=== PATIENT | male | born 1960 | race Caucasian/White ===

== ENCOUNTER 2021-09-04 11:48 | Emergency (ER) | payer MEDICAID, SELFPAY ==
[2021-09-04 11:50] VITALS: BP 161/90; PULSE 58; RESP 18; TEMP 36.8; O2SAT 97; BMI 33.7
--- NOTE | 2021-09-04 12:58 | EKG12_ITS ---
Test Reason : SOB Blood Pressure : / mmHG Vent. Rate : 056 BPM Atrial Rate : 056 BPM P-R Int : 146 ms QRS Dur : 096 ms QT Int : 440 ms P-R-T Axes : -09 022 012 degrees QTc Int : 424 ms Sinus bradycardia Otherwise normal ECG Confirmed by AVELINA PAEZ, JAME ([id number]), film editor supervisor SYLVIA CANADA ([id number]) on 09/05/2021 10:40:17 AM Referred By: ESE Confirmed By:JAME QUAN MD
--- NOTE | 2021-09-04 13:16 | RAD_ITS ---
STUDY: X-RAY CHEST REASON FOR EXAM: Male, 61 years old. Shortness of breath TECHNIQUE: Single frontal view of the chest. COMPARISON: None. FINDINGS: There is a vague opacity within the right midlung. There are left basilar streaky opacities. Normal size heart. Normal mediastinum and gagan. Normal visualized pulmonary arteries. Normal visualized aortic arch and descending thoracic aorta. Normal visualized thoracic spine. Normal visualized ribs, clavicles, and shoulders. There is no demonstrated abnormality of the visualized soft tissue structures of the upper abdomen. RAD/Chest 1 View (Portable) IMPRESSION: The vague opacity within the right midlung, may be secondary to a confluence of shadows however cannot exclude asymmetric edema and/or an infectious process. Minimal left basilar atelectasis and/or scarring. Electronically Signed: Lo Nam MD at 14:02 EST Tel , Service support ,
[2021-09-04] MEDS: Meclizine 12.5 MG Tablet PO (14:05)
[2021-09-04 14:06] VITALS: BP 136/83; PULSE 57; RESP 16; O2SAT 96
[2021-09-04 14:10] LABS: Absolute Lymphocyte Count 1.23 X10^3/uL (0.83-4.51); Absolute Neutrophil Count 11.1 X10^3/uL (2.0-7.7); Basophil# 0.04 X10^3/uL; Basophil% 0.3 % (0-1); Eosinophil# 0.03 X10^3/uL; Eosinophils% 0.2 % (0-5); Hematocrit 44.7 % (40-54); Hemoglobin 14.9 g/dL (13.0-16.5); Lymphocyte # 1.23 X10^3/ul (0.83-4.51); Lymphocyte % 9.3 % (19-41); Mean Corp Hgb Conc 33.3 g/dL (32-36); Mean Corpuscular Volume 93.1 fL (80-94); Mean Platelet Vol. 10.4 fl (6.2-12.0); Monocyte# 0.75 X10^3/uL; Monocyte% 5.7 % (0-10); NRBC Flagged by Analyzer 0 % (0-5); Neutrophil # 11.08 X10^3/uL (2.7-7.7); Neutrophil % 83.9 % (47-70); Platelet Count 310 K/mm3 (150-450); RBC Distribution Width CV 12.1 % (11.6-14.6); RBC Distribution Width SD 42.4 fl (35.1-43.9); White Blood Count 13.2 K/mm3 (4.4-11.0)
[2021-09-04 14:23] LABS: D-Dimer Quantitative (DVT/PE) <= 0.27 FEU/ug/m (0.27-0.49)
[2021-09-04 14:27] LABS: Lactic Acid 1.3 mmol/L (0.4-1.9)
[2021-09-04 14:29] LABS: AST(SGOT) 13 U/L (15-37); Alanine Aminotransfer ALT/SGPT 30 U/L (16-61); Albumin, Serum 3.7 g/dL (3.2-5.0); Alkaline Phosphatase 53 U/L (45-117); Anion Gap 4 (5-15); BUN 13 mg/dL (7-18); BUN/Creat Ratio 14.7 RATIO (10-20); Calcium,Total 9.2 mg/dL (8.5-10.1); Chloride 104 mmol/L (98-107); Creatinine, Serum 0.88 mg/dL (0.70-1.30); EST Glomerular Filtration Rate 94 mL/min (>60); Est Glom Filt Rate - Afr Amer 113 mL/min (>60); Estimated Creatinine Clearance 92.17 ml/min; Globulin 3.7 g/dL (2.2-4.2); Glucose 106 mg/dL (74-106); Potassium 4.9 mmol/L (3.5-5.1); Protein, Total 7.4 g/dL (6.4-8.2); Sodium Level 139 mmol/L (136-145); Troponin-I HS 6 pg/mL (3.0-78.0)
--- NOTE | 2021-09-04 15:56 | EDS_ITS ---
HPI History of Present Illness Chief Complaint: Shortness of Breath Informant: patient Onset/Context/Timing Onset: Yesterday Current Severity: Moderate Maximum Severity: Moderate Narrative Narrative: Patient presents secondary to dizziness and increased shortness of breath. Patient states he was diagnosed with Covid 10 days ago. He had very mild illness similar to a head cold. Patient states last evening he started to feel worse and today feels dizzy. He describes it as a spinning sensation but more of a tumbling forward as opposed to everything spinning around him. He has had some mild increase shortness of breath. No significant fever. Patient is unvaccinated. He did not receive monoclonal antibody treatment or steroids. [facility] Medical History Hypertension Home Medications amlodipine 10 mg PO DAILY 09/04/21 [History Last Taken Unknown] dexamethasone [Decadron] 6 mg PO DAILY #9 tab 09/04/21 [Rx Last Taken Unknown] levofloxacin 750 mg PO DAILY #4 tab 09/04/21 [Rx Last Taken Unknown] meclizine 25 mg PO TID PRN #14 tab 09/04/21 [Rx Last Taken Unknown] Allergy/AdvReac Type Severity Reaction Status Date / Time Sulfa (Sulfonamide AdvReac Other Verified 09/04/21 11:49 Antibiotics) Surgical History History of hernia repair Hx of vasectomy Social History Smoking Status: Never smoker ROS ROS ED Constitutional Constitutional ED: Denies chills or fever(s) Eyes Eyes: Denies blurry vision or change in vision ENT ENT ED: Denies sore throat Cardiovascular Cardiovascular: Denies chest pain or palpitations Respiratory/Chest Respiratory/Chest: Reports cough and dyspnea Gastrointestinal Gastrointestinal: Denies abdominal pain, diarrhea or vomiting Genitourinary Genitourinary ED: Denies dysuria Musculoskeletal Musculoskeletal: Reports myalgias Integumentary Denies rash Neurologic Neurologic: Denies headache(s) Psychiatric Psychiatric: Denies anxiety or depression Allergic/Immunologic Allergic/Immunologic ED: Denies urticaria EXAM Physical Exam Const Vital Signs: 09/04/21 11:50 09/04/21 14:06 09/04/21 16:32 Temperature 98.2 F Temperature Source Temporal Pulse Rate 58 L 57 L 64 Respiratory Rate 18 16 17 Blood Pressure 161/90 H 136/83 H Blood Pressure Mean 113 100 Pulse Ox 97 96 97 Oxygen Delivery Method Room Air Room Air Positive well nourished and well developed General Appearance ED: well developed HEENT Reports moist mucous membranes Eyes PERRL and EOMs intact bilaterally Neck supple Chest Wall inspection of chest normal and palpation of chest normal Resp normal respiratory effort and clear to auscultation bilaterally Cardio regular rate and regular rhythm GI normal to inspection, nondistended, normoactive bowel sounds and non-tender Palpation: soft Neuro oriented x3, CN's II-XII intact bilaterally and no sensory deficits noted Sensorium / Orientation: alert Motor Exam: strength 5/5 throughout Psych mental status grossly normal Skin no rashes or lesions noted MDM MDM MDM Narrative Medical decision making narrative: Lab work, chest x-ray obtained. EKG ordered. Patient given a dose of Antivert. Lab Data Attestation: I reviewed the patient's lab results. Labs: Laboratory Results - last 24 hr 09/04/21 09/04/21 09/04/21 13:54 13:54 13:54 WBC 13.2 H RBC 4.80 Hgb 14.9 Hct 44.7 MCV 93.1 MCH 31.0 MCHC 33.3 RDW Std Deviation 42.4 RDW Coeff of Neetu 12.1 Plt Count 310 MPV 10.4 Immature Gran % (Auto) 0.600 Neut % (Auto) 83.9 H Lymph % (Auto) 9.3 L [place] % (Auto) 5.7 Eos % (Auto) 0.2 Baso % (Auto) 0.3 Absolute Neuts (auto) 11.1 H Absolute Lymphs (auto) 1.23 Nucleated RBC % 0 D-Dimer Quant (PE/DVT) <= 0.27 Sodium 139 Potassium 4.9 Chloride 104 Carbon Dioxide 31.0 Anion Gap 4 L BUN 13 Creatinine 0.88 Estim Creat Clear Calc 92.17 Est GFR (MDRD) Af Amer 113 Est GFR (MDRD) Non-Af 94 BUN/Creatinine Ratio 14.7 Glucose 106 Lactic Acid Calcium 9.2 Total Bilirubin 0.70 Direct Bilirubin 0.20 AST 13 L ALT 30 Alkaline Phosphatase 53 Troponin I High Sens 6 Total Protein 7.4 Albumin 3.7 Globulin 3.7 09/04/21 13:54 WBC RBC Hgb Hct MCV MCH MCHC RDW Std Deviation RDW Coeff of [place]etu Plt Count MPV Immature Gran % (Auto) Neut % (Auto) Lymph % (Auto) [place] % (Auto) Eos % (Auto) Baso % (Auto) Absolute Neuts (auto) Absolute Lymphs (auto) Nucleated RBC % D-Dimer Quant (PE/DVT) Sodium Potassium Chloride Carbon Dioxide Anion Gap BUN Creatinine Estim Creat Clear Calc Est GFR (MDRD) Af Amer Est GFR (MDRD) Non-Af BUN/Creatinine Ratio Glucose Lactic Acid 1.3 Calcium Total Bilirubin Direct Bilirubin AST ALT Alkaline Phosphatase Troponin I High Sens Total Protein Albumin Globulin Radiography Chest X-Ray - ED: 1 View, Read by ED Physician and Chronic Changes Diagnostic Testing: Clinical Impression(s) from Imaging Studies Chest X-Ray 09/04/21 13:16 IMPRESSION: The vague opacity within the right midlung, may be secondary to a confluence of shadows however cannot exclude asymmetric edema and/or an infectious process. Minimal left basilar atelectasis and/or scarring. Electronically Signed: Lo Nam MD at 14:02 EST Tel , Service support , EKG Initial EKG: Attestation: I personally reviewed and interpreted this EKG as follows: Interpretation: Sinus Bradycardia (Sinus bradycardia 56 bpm. No acute ischemia.) Treatment and Re-Evaluation Comments:: On repeat evaluation patient reports mild improvement in symptoms. He is not hypoxic. Lab work remarkable for elevated white count at 13.2. Left shift noted. D-dimer negative. Troponin normal at 6. Chest x-ray appears to show chronic changes per my interpretation. Radiologist is concerned there may be an opacity in the right midlung representing an infectious process. With patient having worsening symptoms and an elevated white count we will cover him with antibiotics for possible secondary bacterial pneumonia. We will also give him Decadron as well as some Antivert. Discharge Plan Triage Chief Complaint: Shortness of Breath Other Complaint: Nausea/Vomiting ED Provider: Alma Dela Cruz Dx/Rx/DC Orders Clinical Impression: COVID, Pneumonia, Vertigo Instructions: Coronavirus Disease 2019 (COVID-19): Overview, ED Pneumonia (Adult), ED Vertigo, Unspecified Prescriptions: New meclizine 25 mg tablet 25 mg PO TID PRN (Reason: dizziness) Qty: 14 RF: 0 levofloxacin 750 mg tablet 750 mg PO DAILY Qty: 4 RF: 0 dexamethasone [Decadron] 6 mg tablet 6 mg PO DAILY Qty: 9 RF: 0 No Action amlodipine 10 mg tablet 10 mg PO DAILY RF: 0 Stand Alone Forms: ED Work / School Excuse Primary Care Provider: Coretta Magana Referrals: Coretta Magana MD [Primary Care Provider] - 1 Week if not improving Disposition Disposition: Home, Self Care Discharge Date/Time: 09/04/21 16:33
[2021-09-04] MEDS: dexAMETHasone 4 MG Tablet 6 MG PO (16:16)
[2021-09-04] MEDS: levoFLOXacin 750 MG Tablet PO (16:16)
[2021-09-04 16:32] VITALS: PULSE 64; RESP 17; O2SAT 97
== END 2021-09-04 16:33 | disposition home or self-care (01) ==
PROVIDERS: Emergency Provider Emergency Medicine; PCP Family Medicine
DX: U07.1 COVID-19 (principal); J12.82 Pneumonia due to coronavirus disease 2019; R11.2 Nausea with vomiting, unspecified; Z28.3 Underimmunization status; I10 Essential (primary) hypertension; Z79.899 Other long term (current) drug therapy
CPT/HCPCS: 71045; 80048; 80076; 83605; 84484; 85025; 85379; 87040; 93005; 99285; A4216

== ENCOUNTER → 2025-09-25 | Outpatient (CLI) | payer OTHER, SELFPAY ==
--- OUTSIDE RECORDS SUMMARY | 2025-09-25 10:17 | XMS RPT_ITS | CCD ---
Author Organization [facility] Care Team Providers Care Boat Officer Name Role Phone WOODY MARQUEZ Unavailable Unavailable WOODY MARQUEZ Unavailable Unavailable Woody Marquez Primary Care Provider [phone] Tapan Mei DO Primary Care Provid er TAPAN MEI Attending TAPAN Brar Primary Care TAPAN Brar Attending TAPAN Brar Primary Care Juany laws Allergies Allergy Classification Reported Allergen(s) Allergy Type Date of Onset Reaction(s) Facility (14 sources) Sulfonamides (Antibiotic); Translations: [SULFA (SULFONAMIDE ANTIBIOTICS)] Drug Allergy Other: See Comments [facility] Medications Current Medications Medication Drug Class(es) Dates Sig (Normalized) Sig (Original) losartan potassium 50 mg oral tablet (20 sources) Angiotensin 2 Receptor Norah Start: 02-20-2024 End: 04-09-2025 take 1 tablet by mouth once daily losartan (COZAAR) 50 mg tablet Indications: Hypertension, essential TAKE ONE TABLET BY MOUTH once EVERY DAY 90 tablet 1 04/09/2025 Active Start: 01-28-2024 End: 03-18-2025 take 1 tablet by mouth once daily losartan (COZAAR) 25 mg tablet Indications: Hypertension, essential Take 1 tablet by mouth once daily. 30 tablet 5 01/28/2024 03/18/2025 Discontinued (Course of therapy completed) magnesium oxide 500 mg oral tablet (13 sources) Magnesium Oxide 500 mg magnesium tab Take by mouth. Active MEDICATION, NON-DATABASE (13 sources) MEDICATION, NON- DATABASE Supplements ever strong Blood pressure w dina Olipure BP Pur zanthin Powdered beets Active MEDICATION, NON- DATABASE Supplements ever strong Blood pressure w dina Olipure BP Pur zanthin Active MEDICATION, NON- DATABASE Supplements ever strong Blood pressure w dina Olipure BP Pur zanthin 0 Active zolpidem tartrate 10 mg oral tablet (17 sources) gamma-Aminobutyric Acid-ergic Agonist Start: 03-10-2025 End: 09-06-2025 take 1 tablet by mouth at bedtime as needed zolpidem (AMBIEN) 10 mg Indications: Primary insomnia Take 1 tablet by mouth at bedtime as needed for up to 180 days. 90 tablet 1 03/10/2025 09/06/2025 Active Start: 09-05-2024 End: 03-04-2025 take 1 tablet by mouth at bedtime as needed zolpidem (AMBIEN) 10 mg Indications: Primary insomnia Take 1 tablet by mouth at bedtime as needed for up to 180 days. for insomnia. 90 tablet 1 09/05/2024 03/04/2025 Active Start: 02-28-2024 End: 03-18-2025 take 1 tablet by mouth at bedtime as needed zolpidem (AMBIEN) 5 mg tablet Indications: Primary insomnia Take 1 tablet by mouth at bedtime as needed for up to 180 days. for insomnia. 90 tablet 1 02/28/2024 03/18/2025 Discontinued (Course of therapy completed) Start: 01-28-2024 End: 04-27-2024 take 1 tablet by mouth at bedtime as needed zolpidem (AMBIEN) 5 mg tablet Indications: Primary insomnia Take 1 tablet by mouth at bedtime as needed for up to 90 days. for insomnia. 30 tablet 1 01/28/2024 02/28/2024 Discontinued Completed/Discontinued Medications Medication Drug Class(es) Dates Sig (Normalized) Sig (Original) amLODIPine 5 mg oral tablet (20 sources) Dihydropyridine Calcium Channel Norah Start: 01-28-2024 End: 03-18-2025 take 1 tablet by mouth once daily amLODIPine (NORVASC) 5 mg tablet Indications: Hypertension, essential TAKE ONE TABLET BY MOUTH DAILY 30 tablet 3 11/24/2024 03/18/2025 Discontinued (Course of therapy completed) Start: 12-18-2018 End: 03-18-2025 take 1 tablet by mouth once daily amLODIPine (NORVASC) 10 mg tablet Take 1 tablet by mouth once daily. 90 tablet 1 12/18/2018 03/18/2025 Discontinued (Course of therapy completed) Comment on above: Take 1 tablet by dann th once daily. rOPINIRole 1 mg oral tablet (12 sources) Nonergot Dopamine Agonist Start: 01-28-2024 End: 03-18-2025 take 1 tablet by mouth once daily at bedtime rOPINIRole (REQUIP) 1 mg tablet Take 1 tablet by mouth daily at bedtime. 30 tablet 2 01/28/2024 03/18/2025 Discontinued (Course of therapy completed) Problems Problem Classification Problem Date Documented Da te Episodic/Chronic Disorders of lipid metabolism (10 sources) Hypertriglyceridemi a; Translations: [Pure hyperglyceridemia] Onset: 09-14-2024 02-20-2024 Chronic Essential hypertension (20 sources) Essential hypertension; Translations: [Essential (primary) hypertension] Onset: 02-03-2024 01-28-2024 Chronic Immunizations and screening for infectious disease (1 source) Contact with or exposure to other viral diseases; Translations: [Exposure to COVID-19 virus] Episodic Miscellaneous mental health disorders (17 sources) Primary insomnia; Translations: [Primary insomnia] Onset: 02-03-2024 01-28-2024 Chronic Other connective tissue disease (1 source) Cramp; Translations: [Cramp and spasm] 01-28-2024 Episodic Other hereditary and degenerative nervous system conditions (14 sources) Restless legs; Translations: [Restless legs syndrome] Onset: 02-03-2024 01-28-2024 Chronic Other nutritional; endocrine; and metabolic disorders (15 sources) Obesity; Translations: [Obesity, unspecified] Onset: 02-03-2024 01-28-2024 Chronic Other nutritional; endocrine; and metabolic disorders (1 source) Body mass index (BMI) 34.0-34.9, adult; Translations: [Class 1 obesity with body mass index (BMI) of 34.0 to 34.9 in adult, unspecified obesity type, unspecified whether serious comorbidity present] Onset: 09-05-2024 Chronic Other screening for suspected conditions (not mental disorders or infectious disease) (8 sources) Patient encounter status; Translations: [Encounter for screening for lipoid disorders] Onset: 03-18-2025 01-28-2024 Episodic Residual codes; unclassified (1 source) Daytime somnolence; Translations: [Other hypersomnia] 01-28-2024 Chronic Residual codes; unclassified (2 sources) Bilateral lower limb edema; Translations: [Localized edema] 01-28-2024 Episodic Spondylosis; intervertebral disc disorders; other back problems (4 sources) Disorder of right sciatic nerve; Translations: [Sciatica, right side] Onset: 03-18-2025 03-18-2025 Episodic Unclassified (1 source) Class 1 obesity with body mass index (BMI) of 34.0 to 34.9 in adult, unspecified obesity type, unspecified whether serious comorbidity present; Translations: [Class 1 obesity with body mass index (BMI) of 34.0 to 34.9 in adult, unspecified obesity type, unspecified whether serious comorbidity present] Onset: 09-05-2024 Results Test Name Value Interpretation Reference Range Facil kerry Mcconnell 03-18-2025 CNOV Office Visit (FPDOYL ) DEWEYFDAI ([id number]) 1960 M Date Time Provider Department 03/18/25 8:00 AM TAPAN MEI FPYL During your visit today, we recorded the following information about you: Temperature Pulse Blood pressure Weight 98 degrees 65/minute 120/88 108 kg Height 1.778 m Tapan Mei DO 03/25/2025 10:49 PM Signed Subjective Romeo Palomo is a 64-year-old male with a history of insomnia, presenting for evaluation of right foot numbness. Right Foot Numbness: - Numbness in the right foot, described as feeling like a big ball of cotton under the toes. - Symptoms begin in the big toe and progress to all toes. - Symptoms occur when sitting in a car, but not when riding a motorcycle. - Duration: 6 months or longer. - No known trauma to the right ankle; previous injury to the left ankle. - Occasional pain in the right thigh. - Denies foot drop. Back Pain: - History of a muscular injury to the lower back during his career. - Believes the back injury may be contributing to the foot numbness. Insomnia: - Currently taking Ambien for sleep. - Inquires about less habit-forming alternatives to Ambien. - Reports that Ambien works most of the time. Restless Leg Syndrome: - No episodes of restless leg syndrome in over a year. - Previously tried Requip without relief. Colorectal Cancer Screening: - Completed Cologuard test 2 years ago. - Takes Metamucil daily. Review of Systems Cardiovascular: (-) chest pain, (-) chest tightness Gastrointestinal: (-) bowel problems Genitourinary: (-) urinary problems Musculoskeletal: (+) right thigh pain Neurological: (+) right toe numbness, (-) restless legs, (-) right foot drop PAST MEDICAL HISTORY Diagnosis Date Hypertension PAST SURGICAL HISTORY Procedure Laterality Date PAST SURGICAL HISTORY OF hernia - left ingunial FAMILY HISTORY Problem Relation Age of Onset Hypertension Mother DVT Mother Ovarian cancer Mother Lung Cancer Mother other (non hodkins) Sister Hypertension Brother other (mva) Brother Social History Tobacco Use Smoking status: Never Smokeless tobacco: Never Substance Use Topics Alcohol use: Yes Comment: just on weekend Drug use: No Current Outpatient Medications Medication Sig zolpidem (AMBIEN) 10 mg Take 1 tablet by mouth at bedtime as needed for up to 180 days. losartan (COZAAR) 50 mg tablet TAKE ONE TABLET BY MOUTH once DAILY Magnesium Oxide 500 mg magnesium tab Take by mouth. MEDICATION, NON-DATABASE Supplements ever strong Blood pressure w dina Olipure BP Pur zanthin Powdered beets No current facility-administered medications for this visit. Objective BP 120/88 Pulse 65 Temp 36.7 ?C (98 ?F) Ht 5' 10 (1.778 m) Wt 238 lb (108 kg) SpO2 98% BMI 34.15 kg/m? Physical Exam GENERAL: NAD, alert and oriented. SKIN: Unremarkable, no rash or skin lesions. HEAD: Normocephalic. EYES: PERRLA, EOMI, conjunctiva clear. EARS: External ears normal, canals clear, TM's normal. NOSE/SINUSES: Nares normal. Septum midline. OROPHARYNX: Lips, mucosa, and tongue normal, good dentition. No oral lesions noted. NECK: Supple, no lymphadenopathy, normal thyroid, no carotid bruits. LUNGS: Clear to auscultation bilaterally, no wheezes/rhonchi/rales. HEART: Regular rate and rhythm, no murmurs. No ectopy. EXTREMITIES: Normal, no deformities, no skin discoloration, no edema. Good foot strength bilaterally. NEURO: Awake, alert and oriented x3, cranial nerves II-XII grossly intact, normal gait, no involuntary motions. No foot drop on the right. Labs: Tests: - Cologuard: Performed 2 years ago (no results stated) Imaging: Assessment AND Plan 1. Hypertension, essential (I10) - Blood pressure reading today is 120/86 mmHg. - Missed medication dose yesterday. - Continue current antihypertensive regimen. 2. Hypertriglyceridemia (E78.1) - Taking fish oil 1000 mg daily. - Continue current management. 3. Screening for prostate cancer (Z12.5) - Discussed the importance of regular screening. 4. Screening for thyroid disorder (Z13.29) - Discussed the importance of regular screening. 5. Sciatica, right side (M54.31) - Experiencing numbness in the toes of the right foot, starting at the big toe and spreading to all toes, described as feeling like a big ball of cotton. Symptoms occur when sitting in a car but not when riding a motorcycle. - Symptoms have been present for approximately 6 months or longer. - No history of foot drop; good foot strength bilaterally. - No bowel or urinary problems reported. - Suspected herniated disc in the lower back. - Discussed potential for irreversible damage if foot drop occurs. - Recommended further evaluation and management. Tapan Mei, DO Return in about 6 months (around 09/17/2025). Rec (more content not included)... Normal [facility] CNOVon 09-05-2024 CNOV Office Visit (FPDOYL ) FADI PALOMO ([id number]) 1960 M Date Time Provider Department 09/05/24 1:00 PM TAPAN MEI EDY During your visit today, we recorded the following information about you: Pulse Blood pressure Weight Height 80/minute 112/70 108 kg 1.778 m Tapan Mei DO 09/14/2024 8:08 PM Signed [facility] [place] Tapan MeiDO [address] [place] [address] Date of Evaluation: 09/05/2024 Patient Name: Fadi Palomo : 1960 Chief Complaint: Patient presents with: Sleep Problem: Would like to increase Medication Problem: Norvasc needs clarified Nursing Intake: There are no exam notes on file for this visit. Subjective Mr. Palomo is a 64 year old male who presents with the following complaint(s): The history is provided by the patient. Hypertension This is a chronic problem. The current episode started more than 1 year ago. Pertinent negatives include no chest pain, headaches, palpitations or shortness of breath. Review of Systems Constitutional: Negative for fatigue and unexpected weight change. HENT: Positive for congestion. Negative for nosebleeds. Eyes: Negative for redness and visual disturbance. Respiratory: Negative for apnea, cough and shortness of breath. Cardiovascular: Negative for chest pain, palpitations and leg swelling. Genitourinary: Negative for hematuria. Neurological: Negative for dizziness, weakness, light-headedness, numbness and headaches. Hematological: Does not bruise/bleed easily. Psychiatric/Behavioral: Positive for sleep disturbance. The patient is not nervous/anxious. PAST MEDICAL HISTORY Diagnosis Date Hypertension PAST SURGICAL HISTORY Procedure Laterality Date PAST SURGICAL HISTORY OF hernia - left ingunial FAMILY HISTORY Problem Relation Age of Onset Hypertension Mother DVT Mother Ovarian cancer Mother Lung Cancer Mother other (non hodkins) Sister Hypertension Brother other (mva) Brother Social History Tobacco Use Smoking status: Never Smokeless tobacco: Never Substance Use Topics Alcohol use: Yes Comment: just on weekend Drug use: No Current Outpatient Medications Medication Sig amLODIPine (NORVASC) 5 mg tablet TAKE ONE TABLET BY MOUTH DAILY zolpidem (AMBIEN) 5 mg tablet Take 1 tablet by mouth at bedtime as needed for up to 180 days. for insomnia. losartan (COZAAR) 50 mg tablet Take 1 tablet by mouth once daily. Magnesium Oxide 500 mg magnesium tab Take by mouth. MEDICATION, NON-DATABASE Supplements ever strong Blood pressure w dina Olipure BP Pur timothy amLODIPine (NORVASC) 10 mg tablet Take 1 tablet by mouth once daily. zolpidem (AMBIEN) 10 mg Take 1 tablet by mouth at bedtime as needed for up to 180 days. for insomnia. losartan (COZAAR) 25 mg tablet Take 1 tablet by mouth once daily. rOPINIRole (REQUIP) 1 mg tablet Take 1 tablet by mouth daily at bedtime. No current facility-administered medications for this visit. I have confirmed and edited as necessary the past medical, family and social histories, HPI, and ROS obtained by others. Objective BP 112/70 Pulse 80 Ht 5' 10 (1.78m) Wt 238 lb (108.0kg) SpO2 97% BMI 34.15 kg/(m2). Physical Exam Vitals and nursing note reviewed. Constitutional: General: He is not in acute distress. Appearance: Normal appearance. He is well-developed. He is not ill-appearing. HENT: Head: Normocephalic. Nose: Congestion present. Mouth/Throat: Mouth: Mucous membranes are moist. Pharynx: Oropharynx is clear. Uvula midline. No oropharyngeal exudate or posterior oropharyngeal erythema. Eyes: General: Lids are normal. Vision grossly intact. Gaze aligned appropriately. Extraocular Movements: Extraocular movements intact. Conjunctiva/sclera: Conjunctivae normal. Pupils: Pupils are equal, round, and reactive to light. Neck: Thyroid: No thyroid mass, thyromegaly or thyroid tenderness. Vascular: No carotid bruit. Trachea: Trachea and phonation normal. Cardiovascular: Rate and Rhythm: Normal rate and regular rhythm. Pulses: Normal pulses. Heart sounds: Normal heart sounds. Musculoskeletal: General: Normal range of motion. Right shoulder: Normal. Left shoulder: Normal. Cervical back: Normal, full passive range of motion without pain and neck supple. No tenderness. No spinous process tenderness. Thoracic back: Normal. Lumbar back: Normal. Right knee: Normal. Left knee: Normal. Right lower leg: No edema. Left lower leg: No edema. Lymphadenopathy: Cervical: No cervical adenopathy. Skin: General: Skin is warm and dry. Neurological: General: No focal deficit present. Mental Status: He is alert and oriented to person, place, and time. Mental status is at basel (more content not included)... Normal [facility] Vital Signs Date Time Vital Sign Value Performing Clinician Whitney salazar 03-18-2025 08:30-0400 Diastolic blood pressure 88 mm[Hg] Tapan Sigifredo DO Work Phone: [facility] 03-18-2025 08:30-0400 Systolic blood pressure 120 mm[Hg] Charlotte Sigifredo DO Work Phone: [facility] 03-18-2025 07:53-0400 Body height 177.8 cm Charlotte Sigifredo DO Work Phone: [facility] 03-18-2025 07:53-0400 Body mass index (BMI) [Ratio] 34.15 kg/m2 Charlotte Sigifredo DO Work Phone: [facility] 03-18-2025 07:53-0400 Body temperature 98.01 [degF] Tapan Sigifredo DO Work Phone: [facility] 03-18-2025 07:53-0400 Body weight 107.96 kg Charlotte Sigifredo DO Work Phone: [facility] 03-18-2025 07:53-0400 Heart rate 65 /min Charlotte Sigifredo DO Work Phone: [facility] 03-18-2025 07:53-0400 SaO2% (BldA) [Mass fraction] 98 % Charlotte Sigifredo DO Work Phone: [facility] 02-20-2024 10:49-0400 Diastolic blood pressure 88 mm[Hg] Charlotte Sigifredo DO Work Phone: [facility] 02-20-2024 10:49-0400 Systolic blood pressure 130 mm[Hg] Tapan Sigifredo DO Work Phone: [facility] 02-20-2024 10:10-0400 Body height 177.8 cm Charlotte Sigifredo DO Work Phone: [facility] 02-20-2024 10:10-0400 Body mass index (BMI) [Ratio] 34.58 kg/m2 Charlotte Sigifredo DO Work Phone: [facility] 02-20-2024 10:10-0400 Body weight 109.32 kg Tapan Sigifredo DO Work Phone: [facility] 02-20-2024 10:10-0400 Heart rate 75 /min Charlotte Sigifredo DO Work Phone: [facility] 02-20-2024 10:10-0400 SaO2% (BldA) [Mass fraction] 96 % Charlotte Sigifredo DO Work Phone: [facility] 01-28-2024 09:11-0400 Diastolic blood pressure 100 mm[Hg] Tapan Sigifredo DO Work Phone: [facility] 01-28-2024 09:11-0400 Systolic blood pressure 132 mm[Hg] Charlotte Sigifredo DO Work Phone: [facility] 01-28-2024 08:36-0400 Body height 177.8 cm Charlotte Sigifredo DO Work Phone: [facility] 01-28-2024 08:36-0400 Body mass index (BMI) [Ratio] 35.15 kg/m2 Tapan Sigifredo DO Work Phone: [facility] 01-28-2024 08:36-0400 Body weight 111.13 kg Tapan Sigifredo DO Work Phone: [facility] 01-28-2024 08:36-0400 Heart rate 80 /min Tapan Sigifredo DO Work Phone: [facility] 01-28-2024 08:36-0400 SaO2% (BldA) [Mass fraction] 96 % Tapan Sigifredo DO Work Phone: [facility] Encounters Encounter Date Encounter Type Care Provider Facility Start: 04-07-2025 End: 04-09-2025 Refill Charlotte Keaton Sigifredo DO Work Phone: [facility] [place] Comment on above: Refill Request Start: 03-18-2025 End: 03-18-2025 Patient encounter procedure Tapan Keaton Sigifredo DO Work Phone: [facility] [place] Comment on above: Hypertension, essent ial (Primary Dx); Hypertriglyceridemia; Sciatica, right side; Screening for prostate cancer; Screening for thyroid disorder Start: 03-18-2025 End: 03-18-2025 ambulatory TAPAN KEATON SIGIFREDO Facility:[facility] Start: 03-08-2025 End: 03-10-2025 Refill Tapan Keaton Sigifredo DO Work Phone: [facility] [place] Comment on above: Refill Request Start: 03-02-2025 End: 03-02-2025 Refill Charlotte Keaton Sigifredo DO Work Phone: [facility] Comment on above: Refill Request Start: 11-22-2024 End: 11-24-2024 Refill Tapan Keaton Sigifredo DO Work Phone: [facility] Comment on above: Refill Request Start: 10-23-2024 End: 10-23-2024 Refill Tapan Keaton Sigifredo DO Work Phone: [facility] Comment on above: Refill Request Start: 09-23-2024 End: 09-26-2024 Refill Tapan Keaton Sigifredo DO Work Phone: [facility] Comment on above: Refill Request Start: 09-05-2024 End: 09-05-2024 ambulatory TAPAN KEATON SIGIFREDO Facility:[facility] Start: 08-22-2024 End: 08-26-2024 Refill Charlotte Keaton Sigifredo DO Work Phone: [facility] Comment on above: Refill Request Start: 07-24-2024 End: 07-25-2024 Refill Tapan Mei DO Work Phone: [facility] Comment on above: Refill Request Start: 02-28-2024 Telephone encounter Tapan Mei DO Work Phone: [facility] Comment on above: Medication Problem Start: 02-20-2024 End: 02-20-2024 Patient encounter procedure Tapan Mei DO Work Phone: [facility] Comment on above: Hypertension, essent ial (Primary Dx); Hypertriglyceridemia; Bilateral leg edema; Class 1 obesity with body mass index (BMI) of 34.0 to 34.9 in adult, unspecified obesity type, unspecified whether serious comorbidity present Start: 02-18-2024 Telephone encounter Tapan Mei DO Work Phone: [facility] Comment on above: Results Start: 01-28-2024 End: 01-28-2024 Patient encounter procedure Tapan Mei DO Work Phone: [facility] Comment on above: Hypertension, essent ial (Primary Dx); Primary insomnia; Muscle cramping; Bilateral leg edema; Excessive daytime sleepiness; RLS (restless legs syndrome); Class 2 obesity with body mass index (BMI) of 35.0 to 35.9 in adult, unspecified obesity type, unspecified whether serious comorbidity present; Screening for hyperlipidemia; Screening for thyroid disorder; Screening for prostate cancer; Screening for colon cancer Start: 10-07-2020 End: 10-07-2020 Orders Only Dorothea Kaplan Work Phone: [facility] Comment on above: Exposure to COVID-19 virus (Primary Dx) Start: 05-03-2018 Patient encounter WOODY flower:[facility] Procedures Date Procedure Procedure Detail Performing Clinician Start: 02-12-2024 Lipid 1996 panel - S hair or Plasma Charlotte Sigifredo DO Work Phone: Start: 10-20-2016 Lipid 1996 panel - S hair or Plasma Tapan Sigifredo DO Work Phone: Plan of Treatment Date Care Activity Detail Author Start: 2036 RSV Vaccine (1 - 1-dose 75+ series) RSV Vaccine (1 - 1-dose 75+ series) [facility] Start: 02-11-2029 Lipid panel Lipid Screening [facility] Start: 02-11-2029 Prostate specific antigen measurement Prostate Cancer Screening Discussion [facility] Start: 02-11-2027 Diabetes Screening Diabetes Screening [facility] Start: 01-30-2027 Screening for malignant neoplasm of colon [facility] Start: 03-18-2026 Annual PCP Team Chronic Disease Visit Annual PCP Team Chronic Disease Visit [facility] Start: 09-05-2025 Annual PCP Team Chronic Disease Visit Annual PCP Team Chronic Disease Visit [facility] Start: 09-05-2025 BP Controlled (<130/80) BP Controlled (<130/80) [facility] Start: 06-01-2025 Influenza vaccination [facility] Start: 03-18-2025 End: 03-18-2026 CBC W Auto Differential panel - Blood COMPLETE BLOOD COUNT AND DIFFERENTIAL Lab Routine Hypertension, essential Hypertriglyceridemia Expected: 03/18/2025, Expires: 03/18/2026 [facility] Work Phone: Comment on above: Expected: 03/18/2025, Expires: Start: 03-18-2025 End: 03-18-2026 Comprehensive metabolic 2000 panel - Serum or Plasma COMPREHENSIVE METABOLIC PANEL Lab Routine Hypertension, essential Hypertriglyceridemia Expected: 03/18/2025, Expires: 03/18/2026 [facility] Comment on above: Expected: 03/18/2025, Expires: Start: 03-18-2025 End: 03-18-2026 Lipid 1996 panel - Serum or Plasma LIPID PANEL, FASTING Lab Routine Hypertension, essential Hypertriglyceridemia Expected: 03/18/2025, Expires: 03/18/2026 [facility] Comment on above: Expected: 03/18/2025, Expires: Start: 03-18-2025 End: 03-18-2026 PSA/PROSTATE SPECIFIC ANTIGEN SCREENING PSA/PROSTATE SPECIFIC ANTIGEN SCREENING Lab Routine Screening for prostate cancer Expected: 03/18/2025, Expires: 03/18/2026 [facility] Comment on above: Expected: 03/18/2025, Expires: Start: 03-18-2025 End: 03-18-2026 Thyrotropin [Units/volume] in Serum or Plasma THYROID STIMULATING HORMONE Lab Routine Screening for thyroid disorder Expected: 03/18/2025, Expires: 03/18/2026 [facility] Comment on above: Expected: 03/18/2025, Expires: Start: 03-18-2025 End: 06-17-2025 Urinalysis complete panel - Urine URINALYSIS, WITH MICROSCOPIC Lab Routine Hypertension, essential Hypertriglyceridemia Expected: 03/18/2025, Expires: 06/17/2025 [facility] Comment on above: Expected: 03/18/2025, Expires: Start: 03-18-2025 End: 03-18-2025 Patient encounter procedure 03/18/2025 8:00 [place] [address] Tapan Mei DO [address] [place] [address] Refill ck up [facility] Comment on above: Refill ck up Start: 02-19-2025 Annual PCP Team Chronic Disease Visit Annual PCP Team Chronic Disease Visit [facility] Start: 01-27-2025 Annual PCP Team Chronic Disease Visit Annual PCP Team Chronic Disease Visit [facility] Start: 01-27-2025 Covid-19 Vaccine ( season) Covid-19 Vaccine () [facility] Comment on above: Postponed from 06/01/2023 (Declined at t his time) Start: 01-27-2025 RSV Vaccine (1 - 1-dose 60+ series) RSV Vaccine (1 - 1-dose 60+ series) [facility] Comment on above: Postponed from 2021 (Declined at t his time) Start: 01-27-2025 Shingrix Vaccine (1 of 2) Shingrix Vaccine (1 of 2) [facility] Comment on above: Postponed from 2011 (Declined at t his time) Start: 01-27-2025 Urine microalbumin profile DTaP,Tdap,Td Vaccine (2 - Td or Tdap) [facility] Comment on above: Postponed from 10/01/2022 (Declined at t his time) Start: 09-05-2024 End: 09-05-2024 Patient encounter procedure 09/05/2024 1:00 PM EST Office Visit [facility] [address] [place] [id number] Tapan Mei DO [address] [place] [id number] ambien increase [facility] Comment on above: ambien increase Start: 08-18-2024 End: 08-18-2024 Patient encounter procedure 08/18/2024 10:15 AM EST Office Visit [facility] [address] [place] [id number] Taapn Mei DO [address] [place] [id number] 6 mos ck up [facility] Comment on above: 6 mos ck up Start: 06-01-2024 Covid-19 Vaccine ( season) Covid-19 Vaccine ( season) [facility] Start: 06-01-2024 Influenza vaccination [facility] Start: 02-20-2024 End: 02-20-2024 Patient encounter procedure 02/20/2024 10:15 AM EDT Office Visit [place] [id number] [facility] [place] [address] Tapan Mei DO [address] [place] [address] f/u [address] [facility] Comment on above: f/u 3 weeks Start: 01-28-2024 End: 01-27-2025 CBC W Auto Differential panel - Blood COMPLETE BLOOD COUNT AND DIFFERENTIAL Lab Routine Screening for hyperlipidemia Expected: 01/28/2024, Expires: 01/27/2025 [facility] Work Phone: Comment on above: Expected: 01/28/2024, Expires: Start: 01-28-2024 End: 01-27-2025 Comprehensive metabolic 2000 panel - Serum or Plasma COMPREHENSIVE METABOLIC PANEL Lab Routine Screening for hyperlipidemia Expected: 01/28/2024, Expires: 01/27/2025 [facility] Comment on above: Expected: 01/28/2024, Expires: Start: 01-28-2024 End: 01-27-2025 Lipid 1996 panel - Serum or Plasma LIPID PANEL BASIC Lab Routine Screening for hyperlipidemia Expected: 01/28/2024, Expires: 01/27/2025 [facility] Comment on above: Expected: 01/28/2024, Expires: Start: 01-28-2024 End: 01-27-2025 PSA/PROSTATE SPECIFIC ANTIGEN SCREENING PSA/PROSTATE SPECIFIC ANTIGEN SCREENING Lab Routine Screening for prostate cancer Expected: 01/28/2024, Expires: 01/27/2025 [facility] Comment on above: Expected: 01/28/2024, Expires: Start: 01-28-2024 End: 01-27-2025 Thyrotropin [Units/volume] in Serum or Plasma THYROID STIMULATING HORMONE Lab Routine Screening for thyroid disorder Expected: 01/28/2024, Expires: 01/27/2025 [facility] Comment on above: Expected: 01/28/2024, Expires: Start: 11-08-2023 Screening for malignant neoplasm of colon [facility] Start: 10-01-2023 Behavioral Health Screening Behavioral Health Screening [facility] Start: 10-01-2022 Urine microalbumin profile [facility] Start: 10-20-2021 Lipid panel Lipid Screening [facility] Start: 10-20-2021 LIPID SCREEN LIPID SCREEN [facility] Start: 10-20-2021 PROSTATE CANCER SCREENING DISCUSSION PROSTATE CANCER SCREENING DISCUSSION [facility] Start: 10-20-2021 Prostate specific antigen measurement Prostate Cancer Screening Discussion [facility] Start: 10-07-2020 End: 10-21-2020 2019 CORONAVIRUS 2019 CORONAVIRUS Microbiolog y Routine Exposure to COVID-19 virus Expected: 10/07/2020, Expires: 10/21/2020 [facility] Comment on above: Expected: 10/07/2020, Expires: Start: 06-01-2020 Influenza vaccination INFLUENZA (#1) [facility] Start: 11-11-2019 ANNUAL PCP TEAM CHRONIC DISEASE VISIT ANNUAL PCP TEAM CHRONIC DISEASE VISIT [facility] Start: 10-20-2019 DIABETES SCREEN DIABETES SCREEN [facility] Start: 10-20-2019 Diabetes Screening Diabetes Screening [facility] Start: 2011 Pneumococcal Vaccine: 50+ (1 of 1 - PCV) Pneumococcal Vaccine: 50+ (1 of 1 - PCV) [facility] Start: 2011 Screening for malignant neoplasm of colon [facility] Start: 2011 SHINGRIX VACCINE (1 of 2) SHINGRIX VACCINE (1 of 2) [facility] Start: 2006 Screening for malignant neoplasm of colon [facility] Start: 1979 Anxiety Screening Anxiety Screening [facility] Start: 1979 BP CONTROLLED (<130/80) BP CONTROLLED (<130/80) [facility] Start: 1979 Depression Screening Depression Screening [facility] Start: 1979 HEPATITIS C SCREENING HEPATITIS C SCREENING [facility] Start: 1979 Hepatitis C screening Hepatitis C Screening [facility] Start: 1979 HIV SCREENING HIV SCREENING [facility] Start: 1979 HIV screening HIV Screening [facility] COLOGUARD COLOGUARD Lab Ro utine Screening for colon cancer 02/01/2024 9:53 AM EDT [facility] SLEEP STUDY ORDER NO N [facility] SLEEP STUDY ORDER NON [facility] Procedures Routine Excessive daytime sleepiness Ordered: 01/28/2024 [facility] Comment on above: Ordered: 01/28/2024 Immunizations Immunization Date Immunization Notes Care Provider Quique flower 10-23-2019 influenza, injectabl e, quadrivalent, preservative free Tapan Sigifredo DO Work Phone: [facility] 10-23-2019 influenza virus vacc ine, unspecified formulation Tapan Sigifredo DO Work Phone: [facility] 08-02-2015 influenza, seasonal, injectable, preservative free Charlotte Sigifredo DO Work Phone: [facility] 07-27-2015 influenza, seasonal, injectable Dorothea Kaplan [facility] 07-27-2015 influenza, seasonal, injectable, preservative free Tapan Sigifredo DO Work Phone: [facility] 07-31-2013 influenza, seasonal, injectable, preservative free Tapan Sigifredo DO Work Phone: [facility] Payers Date Payer Category Payer Private Health Insurance [id number] 2023 Unknown MMO [employer] PPO [id number] 2023-Present [phone] [address] [place] [address] PPO [id number] 2023 Unknown [id number] 2017 Private Health Insurance [facility] CHOICE PLUS [id number] 2017-Present HMO [id number] Social History Date Type Detail Facility Start: 11-11-2018 End: 01-28-2024 Tobacco smoking status NHIS Never smoker [facility] Start: 11-11-2018 End: 01-28-2024 Tobacco use and exposure [facility] Start: 11-11-2018 End: 01-28-2024 Alcohol intake Current drinker of alcohol (finding) [facility] Start: 05-03-2018 Alcohol Comment 10/wk Clevel[facility] Start: 1960 Sex Assigned At Not on file [facility] Start: 01-28-2024 End: 03-18-2025 History of Social function [facility] Start: 01-28-2024 End: 03-18-2025 Tobacco use panel [facility] Adult Depression Screening Assessment 0 [facility] Start: 01-28-2024 Alcohol Comment just on [facility] Start: 1960 Sex Assigned At Male [facility] Start: 01-21-2024 Gender identity Identifies as male gender (finding) [facility] Start: 01-21-2024 Sexual orientation Heterosexual (fin ding) [facility] Clinical Notes 01-28-2024 to 04-07-2025 Telephone Encounter - Greer Qiu LPN - 04/07/2025 11:51 AM EDTTelephone Encounter - Greer Qiu LPN - 04/07/2025 11:51 AM Tapan Miranda DO - 03/18/2025 8:33 AM EDT Note Date & Type Note Facility 04-07-2025 Telephone encounter Note Pharmacy faxed requesting the following refill Refill(s) Requested: Requested Prescriptions Pending Prescriptions Disp Refills losartan (COZAAR) 50 mg tablet [Pharmacy Med Name: Losartan Potassium Oral Tablet 50 MG] 90 tablet 1 Sig: TAKE ONE TABLET BY MOUTH once EVERY DAY ALLERGIES Allergen Reactions Sulfa (Sulfonamide * Other: See Comments headache (home) [phone] (cell) Last Office Visit Date: 03/18/2025 Last [facility] Visit: Visit date not found Future Appointment: Visit date not found The patients preferred pharmacy has been captured for this encounter? yes Request is for script(s) to be escript to pharmacy. Greer Qiu LPN [facility] 04-07-2025 Miscellaneous Notes Pharmacy faxed requesting the following refill Refill(s) Requested: Requested Prescriptions Pending Prescriptions Disp Refills losartan (COZAAR) 50 mg tablet [Pharmacy Med Name: Losartan Potassium Oral Tablet 50 MG] 90 tablet 1 Sig: TAKE ONE TABLET BY MOUTH once EVERY DAY ALLERGIES Allergen Reactions Sulfa (Sulfonamide * Other: See Comments headache (home) [phone] (cell) Last Office Visit Date: 03/18/2025 Last [facility] Health Visit: Visit date not found Future Appointment: Visit date not found The patients preferred pharmacy has been captured for this encounter? yes Request is for script(s) to be escript to pharmacy. Greer Qiu LPN documented in this encounter [facility] 03-18-2025 Note HNO ID: [id number] Author: TAPAN MEI, DO Service: ? Author Type: Physician Type: Progress Notes Filed: 03/25/2025 22:49 Note Text: Alton Palomo is a 64-year-old male with a history of insomnia, presenting for evaluation of right foot numbness. Right Foot Numbness: - Numbness in the right foot, described as feeling like a big ball of cotton under the toes. - Symptoms begin in the big toe and progress to all toes. - Symptoms occur when sitting in a car, but not when riding a motorcycle. - Duration: 6 months or longer. - No known trauma to the right ankle; previous injury to the left ankle. - Occasional pain in the right thigh. - Denies foot drop. Back Pain: - History of a muscular injury to the lower back during his career. - Believes the back injury may be contributing to the foot numbness. Insomnia: - Currently taking Ambien for sleep. - Inquires about less habit-forming alternatives to Ambien. - Reports that Ambien works most of the time. Restless Leg Syndrome: - No episodes of restless leg syndrome in over a year. - Previously tried Requip without relief. Colorectal Cancer Screening: - Completed Cologuard test 2 years ago. - Takes Metamucil daily. Review of Systems Cardiovascular: (-) chest pain, (-) chest tightness Gastrointestinal: (-) bowel problems Genitourinary: (-) urinary problems Musculoskeletal: (+) right thigh pain Neurological: (+) right toe numbness, (-) restless legs, (-) right foot drop PAST MEDICAL HISTORY Diagnosis Date Hypertension PAST SURGICAL HISTORY Procedure Laterality Date PAST SURGICAL HISTORY OF hernia - left ingunial FAMILY HISTORY Problem Relation Age of Onset Hypertension Mother DVT Mother Ovarian cancer Mother Lung Cancer Mother other (non hodkins) Sister Hypertension Brother other (mva) Brother Social History Tobacco Use Smoking status: Never Smokeless tobacco: Never Substance Use Topics Alcohol use: Yes Comment: just on weekend Drug use: No Current Outpatient Medications Medication Sig zolpidem (AMBIEN) 10 mg Take 1 tablet by mouth at bedtime as needed for up to 180 days. losartan (COZAAR) 50 mg tablet TAKE ONE TABLET BY MOUTH once DAILY Magnesium Oxide 500 mg magnesium tab Take by mouth. MEDICATION, NON-DATABASE Supplements ever strong Blood pressure w dina Olipure BP Pur zanthin Powdered beets No current facility-administered medications for this visit. Objective BP 120/88 Pulse 65 Temp 36.7 ?C (98 ?F) Ht 5' 10 (1.778 m) Wt 238 lb (108 kg) SpO2 98% BMI 34.15 kg/m? Physical Exam GENERAL: NAD, alert and oriented. SKIN: Unremarkable, no rash or skin lesions. HEAD: Normocephalic. EYES: PERRLA, EOMI, conjunctiva clear. EARS: External ears normal, canals clear, TM's normal. NOSE/SINUSES: Nares normal. Septum midline. OROPHARYNX: Lips, mucosa, and tongue normal, good dentition. No oral lesions noted. NECK: Supple, no lymphadenopathy, normal thyroid, no carotid bruits. LUNGS: Clear to auscultation bilaterally, no wheezes/rhonchi/rales. HEART: Regular rate and rhythm, no murmurs. No ectopy. EXTREMITIES: Normal, no deformities, no skin discoloration, no edema. Good foot strength bilaterally. NEURO: Awake, alert and oriented x3, cranial nerves II-XII grossly intact, normal gait, no involuntary motions. No foot drop on the right. Labs: Tests: - Cologuard: Performed 2 years ago (no results stated) Imaging: Assessment AND Plan 1. Hypertension, essential (I10) - Blood pressure reading today is 120/86 mmHg. - Missed medication dose yesterday. - Continue current antihypertensive regimen. 2. Hypertriglyceridemia (E78.1) - Taking fish oil 1000 mg daily. - Continue current management. 3. Screening for prostate cancer (Z12.5) - Discussed the importance of regular screening. 4. Screening for thyroid disorder (Z13.29) - Discussed the importance of regular screening. 5. Sciatica, right side (M54.31) - Experiencing numbness in the toes of the right foot, starting at the big toe and spreading to all toes, described as feeling like a big ball of cotton. Symptoms occur when sitting in a car but not when riding a motorcycle. - Symptoms have been present for approximately 6 months or longer. - No history of foot drop; good foot strength bilaterally. - No bowel or urinary problems reported. - Suspected herniated disc in the lower back. - Discussed potential for irreversible damage if foot drop occurs. - Recommended further evaluation and management. Tapan Mei DO Return in about 6 months (around 09/17/2025). Recording using Liquid software for draft documentation of the visit was discussed with the patient/authorized technical sales representative; all questions welcomed and answered. Patient/authorized technical sales representative agreed to proceed [facility] 03-18-2025 History of Present illness Narrative Alton Palomo is a 64-year-old male with a history of insomnia, presenting for evaluation of right foot numbness. Right Foot Numbness: - Numbness in the right foot, described as feeling like a big ball of cotton under the toes. - Symptoms begin in the big toe and progress to all toes. - Symptoms occur when sitting in a car, but not when riding a motorcycle. - Duration: 6 months or longer. - No known trauma to the right ankle; previous injury to the left ankle. - Occasional pain in the right thigh. - Denies foot drop. Back Pain: - History of a muscular injury to the lower back during his career. - Believes the back injury may be contributing to the foot numbness. Insomnia: - Currently taking Ambien for sleep. - Inquires about less habit-forming alternatives to Ambien. - Reports that Ambien works most of the time. Restless Leg Syndrome: - No episodes of restless leg syndrome in over a year. - Previously tried Requip without relief. Colorectal Cancer Screening: - Completed Cologuard test 2 years ago. - Takes Metamucil daily. Review of Systems Cardiovascular: (-) chest pain, (-) chest tightness Gastrointestinal: (-) bowel problems Genitourinary: (-) urinary problems Musculoskeletal: (+) right thigh pain Neurological: (+) right toe numbness, (-) restless legs, (-) right foot drop PAST MEDICAL HISTORY Diagnosis Date Hypertension PAST SURGICAL HISTORY Procedure Laterality Date PAST SURGICAL HISTORY OF hernia - left ingunial FAMILY HISTORY Problem Relation Age of Onset Hypertension Mother DVT Mother Ovarian cancer Mother Lung Cancer Mother other (non hodkins) Sister Hypertension Brother other (mva) Brother Social History Tobacco Use Smoking status: Never Smokeless tobacco: Never Substance Use Topics Alcohol use: Yes Comment: just on weekend Drug use: No Current Outpatient Medications Medication Sig zolpidem (AMBIEN) 10 mg Take 1 tablet by mouth at bedtime as needed for up to 180 days. losartan (COZAAR) 50 mg tablet TAKE ONE TABLET BY MOUTH once DAILY Magnesium Oxide 500 mg magnesium tab Take by mouth. MEDICATION, NON-DATABASE Supplements ever strong Blood pressure w dina Olipure BP Pur zanthin Powdered beets No current facility-administered medications for this visit. Objective BP 120/88 Pulse 65 Temp 36.7 C (98 F) Ht 5' 10 (1.778 m) Wt 238 lb (108 kg) SpO2 98% BMI 34.15 kg/m Physical Exam GENERAL: NAD, alert and oriented. SKIN: Unremarkable, no rash or skin lesions. HEAD: Normocephalic. EYES: PERRLA, EOMI, conjunctiva clear. EARS: External ears normal, canals clear, TM's normal. NOSE/SINUSES: Nares normal. Septum midline. OROPHARYNX: Lips, mucosa, and tongue normal, good dentition. No oral lesions noted. NECK: Supple, no lymphadenopathy, normal thyroid, no carotid bruits. LUNGS: Clear to auscultation bilaterally, no wheezes/rhonchi/rales. HEART: Regular rate and rhythm, no murmurs. No ectopy. EXTREMITIES: Normal, no deformities, no skin discoloration, no edema. Good foot strength bilaterally. NEURO: Awake, alert and oriented x3, cranial nerves II-XII grossly intact, normal gait, no involuntary motions. No foot drop on the right. Labs: Tests: - Cologuard: Performed 2 years ago (no results stated) Imaging: Assessment & Plan 1. Hypertension, essential (I10) - Blood pressure reading today is 120/86 mmHg. - Missed medication dose yesterday. - Continue current antihypertensive regimen. 2. Hypertriglyceridemia (E78.1) - Taking fish oil 1000 mg daily. - Continue current management. 3. Screening for prostate cancer (Z12.5) - Discussed the importance of regular screening. 4. Screening for thyroid disorder (Z13.29) - Discussed the importance of regular screening. 5. Sciatica, right side (M54.31) - Experiencing numbness in the toes of the right foot, starting at the big toe and spreading to all toes, described as feeling like a big ball of cotton. Symptoms occur when sitting in a car but not when riding a motorcycle. - Symptoms have been present for approximately 6 months or longer. - No history of foot drop; good foot strength bilaterally. - No bowel or urinary problems reported. - Suspected herniated disc in the lower back. - Discussed potential for irreversible damage if foot drop occurs. - Recommended further evaluation and management. Tapan Mei DO Return in about 6 months (around 09/17/2025). Recording using Liquid software for draft documentation of the visit was discussed with the patient/authorized technical sales representative; all questions welcomed and answered. Patient/authorized technical sales representative agreed to proceed documented in this encounter [facility] 03-09-2025 Telephone encounter Note Pharmacy faxed requesting the following refill Refill(s) Requested: Requested Prescriptions Pending Prescriptions Disp Refills zolpidem (AMBIEN) 10 mg [Pharmacy Med Name: Zolpidem Tartrate Oral Tablet 10 MG] 90 tablet 0 Sig: Take 1 tablet by mouth at bedtime as needed. ALLERGIES Allergen Reactions Sulfa (Sulfonamide * Other: See Comments headache (home) [phone] (cell) Last Office Visit Date: 09/05/2024 Last [facility] Health Visit: Visit date not found Future Appointment: Visit date not found The patients preferred pharmacy has been captured for this encounter? yes Request is for script(s) to be escript to pharmacy. Ana Rivera LPN [facility] 03-09-2025 Miscellaneous Notes Pharmacy faxed requesting the following refill Refill(s) Requested: Requested Prescriptions Pending Prescriptions Disp Refills zolpidem (AMBIEN) 10 mg [Pharmacy Med Name: Zolpidem Tartrate Oral Tablet 10 MG] 90 tablet 0 Sig: Take 1 tablet by mouth at bedtime as needed. ALLERGIES Allergen Reactions Sulfa (Sulfonamide * Other: See Comments headache (home) [phone] (cell) Last Office Visit Date: 09/05/2024 Last [facility] Visit: Visit date not found Future Appointment: Visit date not found The patients preferred pharmacy has been captured for this encounter? yes Request is for script(s) to be escript to pharmacy. Ana Rivera LPN documented in this encounter [facility] 03-02-2025 Telephone encounter Note Pharmacy faxed requesting the following refill Refill(s) Requested: Requested Prescriptions Pending Prescriptions Disp Refills losartan (COZAAR) 50 mg tablet [Pharmacy Med Name: Losartan Potassium Oral Tablet 50 MG] 90 tablet 0 Sig: TAKE ONE TABLET BY MOUTH once DAILY ALLERGIES Allergen Reactions Sulfa (Sulfonamide * Other: See Comments headache (home) [phone] (cell) Last Office Visit Date: 09/05/2024 Last [facility] Visit: Visit date not found Future Appointment: Visit date not found The patients preferred pharmacy has been captured for this encounter? yes Request is for script(s) to be escript to pharmacy. Ana Rivera LPN [facility] 03-02-2025 Miscellaneous Notes Pharmacy faxed requesting the following refill Refill(s) Requested: Requested Prescriptions Pending Prescriptions Disp Refills losartan (COZAAR) 50 mg tablet [Pharmacy Med Name: Losartan Potassium Oral Tablet 50 MG] 90 tablet 0 Sig: TAKE ONE TABLET BY MOUTH once DAILY ALLERGIES Allergen Reactions Sulfa (Sulfonamide * Other: See Comments headache (home) [phone] (cell) Last Office Visit Date: 09/05/2024 Last [facility] Visit: Visit date not found Future Appointment: Visit date not found The patients preferred pharmacy has been captured for this encounter? yes Request is for script(s) to be escript to pharmacy. Ana Rivera LPN documented in this encounter [facility] 11-24-2024 Telephone encounter Note Pharmacy faxed requesting the following refill Refill(s) Requested: Requested Prescriptions Pending Prescriptions Disp Refills amLODIPine (NORVASC) 5 mg tablet [Pharmacy Med Name: amLODIPine Besylate Oral Tablet 5 MG] 30 tablet 0 Sig: TAKE ONE TABLET BY MOUTH DAILY ALLERGIES Allergen Reactions Sulfa (Sulfonamide * Other: See Comments headache (home) [phone] (cell) Last Office Visit Date: 09/05/2024 Last [facility] Visit: Visit date not found Future Appointment: Visit date not found The patients preferred pharmacy has been captured for this encounter? yes Request is for script(s) to be escript to pharmacy. Ana Rivera LPN [facility] 11-24-2024 Miscellaneous Notes Pharmacy faxed requesting the following refill Refill(s) Requested: Requested Prescriptions Pending Prescriptions Disp Refills amLODIPine (NORVASC) 5 mg tablet [Pharmacy Med Name: amLODIPine Besylate Oral Tablet 5 MG] 30 tablet 0 Sig: TAKE ONE TABLET BY MOUTH DAILY ALLERGIES Allergen Reactions Sulfa (Sulfonamide * Other: See Comments headache (home) [phone] (cell) Last Office Visit Date: 09/05/2024 Last Distance Health Visit: Visit date not found Future Appointment: Visit date not found The patients preferred pharmacy has been captured for this encounter? yes Request is for script(s) to be escript to pharmacy. Ana Rivera LPN documented in this encounter [facility] 10-23-2024 Telephone encounter Note Pharmacy faxed requesting the following refill Refill(s) Requested: Requested Prescriptions Pending Prescriptions Disp Refills amLODIPine (NORVASC) 5 mg tablet [Pharmacy Med Name: amLODIPine Besylate Oral Tablet 5 MG] 30 tablet 0 Sig: TAKE ONE TABLET BY MOUTH DAILY ALLERGIES Allergen Reactions Sulfa (Sulfonamide * Other: See Comments headache (home) [phone] (cell) Last Office Visit Date: 09/05/2024 Last Distance Health Visit: Visit date not found Future Appointment: Visit date not found The patients preferred pharmacy has been captured for this encounter? yes Request is for script(s) to be escript to pharmacy. Ana Rivera LPN [facility] 10-23-2024 Miscellaneous Notes Pharmacy faxed requesting the following refill Refill(s) Requested: Requested Prescriptions Pending Prescriptions Disp Refills amLODIPine (NORVASC) 5 mg tablet [Pharmacy Med Name: amLODIPine Besylate Oral Tablet 5 MG] 30 tablet 0 Sig: TAKE ONE TABLET BY MOUTH DAILY ALLERGIES Allergen Reactions Sulfa (Sulfonamide * Other: See Comments headache (home) [phone] (cell) Last Office Visit Date: 09/05/2024 Last Distance Health Visit: Visit date not found Future Appointment: Visit date not found The patients preferred pharmacy has been captured for this encounter? yes Request is for script(s) to be escript to pharmacy. Ana Rivera LPN documented in this encounter [facility] 09-25-2024 Telephone encounter Note Pharmacy requesting refill. Okay to refill? See medication list. [facility] 09-25-2024 Miscellaneous Notes Pharmacy requesting refill. Okay to refill? See medication list. documented in this encounter [facility] 09-05-2024 Note HNO ID: [id number] Author: TAPAN MEI DO Service: ? Author Type: Physician Type: Progress Notes Filed: 09/14/2024 20:08 Note Text: [facility] Tapan Mei DO [address] [place] [address] Date of Evaluation: 09/05/2024 Patient Name: Fadi Palomo : 1960 Chief Complaint: Patient presents with: Sleep Problem: Would like to increase Medication Problem: Norvasc needs clarified Nursing Intake: There are no exam notes on file for this visit. Subjective Mr. Palomo is a 64 year old male who presents with the following complaint(s): The history is provided by the patient. Hypertension This is a chronic problem. The current episode started more than 1 year ago. Pertinent negatives include no chest pain, headaches, palpitations or shortness of breath. Review of Systems Constitutional: Negative for fatigue and unexpected weight change. HENT: Positive for congestion. Negative for nosebleeds. Eyes: Negative for redness and visual disturbance. Respiratory: Negative for apnea, cough and shortness of breath. Cardiovascular: Negative for chest pain, palpitations and leg swelling. Genitourinary: Negative for hematuria. Neurological: Negative for dizziness, weakness, light-headedness, numbness and headaches. Hematological: Does not bruise/bleed easily. Psychiatric/Behavioral: Positive for sleep disturbance. The patient is not nervous/anxious. PAST MEDICAL HISTORY Diagnosis Date Hypertension PAST SURGICAL HISTORY Procedure Laterality Date PAST SURGICAL HISTORY OF hernia - left ingunial FAMILY HISTORY Problem Relation Age of Onset Hypertension Mother DVT Mother Ovarian cancer Mother Lung Cancer Mother other (non hodkins) Sister Hypertension Brother other (mva) Brother Social History Tobacco Use Smoking status: Never Smokeless tobacco: Never Substance Use Topics Alcohol use: Yes Comment: just on weekend Drug use: No Current Outpatient Medications Medication Sig amLODIPine (NORVASC) 5 mg tablet TAKE ONE TABLET BY MOUTH DAILY zolpidem (AMBIEN) 5 mg tablet Take 1 tablet by mouth at bedtime as needed for up to 180 days. for insomnia. losartan (COZAAR) 50 mg tablet Take 1 tablet by mouth once daily. Magnesium Oxide 500 mg magnesium tab Take by mouth. MEDICATION, NON-DATABASE Supplements ever strong Blood pressure w dina Olipure BP Pur zanthin amLODIPine (NORVASC) 10 mg tablet Take 1 tablet by mouth once daily. zolpidem (AMBIEN) 10 mg Take 1 tablet by mouth at bedtime as needed for up to 180 days. for insomnia. losartan (COZAAR) 25 mg tablet Take 1 tablet by mouth once daily. rOPINIRole (REQUIP) 1 mg tablet Take 1 tablet by mouth daily at bedtime. No current facility-administered medications for this visit. I have confirmed and edited as necessary the past medical, family and social histories, HPI, and ROS obtained by others. Objective BP 112/70 Pulse 80 Ht 5' 10 (1.78m) Wt 238 lb (108.0kg) SpO2 97% BMI 34.15 kg/(m2). Physical Exam Vitals and nursing note reviewed. Constitutional: General: He is not in acute distress. Appearance: Normal appearance. He is well-developed. He is not ill-appearing. HENT: Head: Normocephalic. Nose: Congestion present. Mouth/Throat: Mouth: Mucous membranes are moist. Pharynx: Oropharynx is clear. Uvula midline. No oropharyngeal exudate or posterior oropharyngeal erythema. Eyes: General: Lids are normal. Vision grossly intact. Gaze aligned appropriately. Extraocular Movements: Extraocular movements intact. Conjunctiva/sclera: Conjunctivae normal. Pupils: Pupils are equal, round, and reactive to light. Neck: Thyroid: No thyroid mass, thyromegaly or thyroid tenderness. Vascular: No carotid bruit. Trachea: Trachea and phonation normal. Cardiovascular: Rate and Rhythm: Normal rate and regular rhythm. Pulses: Normal pulses. Heart sounds: Normal heart sounds. Musculoskeletal: General: Normal range of motion. Right shoulder: Normal. Left shoulder: Normal. Cervical back: Normal, full passive range of motion without pain and neck supple. No tenderness. No spinous process tenderness. Thoracic back: Normal. Lumbar back: Normal. Right knee: Normal. Left knee: Normal. Right lower leg: No edema. Left lower leg: No edema. Lymphadenopathy: Cervical: No cervical adenopathy. Skin: General: Skin is warm and dry. Neurological: General: No focal deficit present. Mental Status: He is alert and oriented to person, place, and time. Mental status is at baseline. Sensory: Sensation is intact. Motor: Motor function is intact. Psychiatric: Attention and Perception: Attention and perception normal. Mood and Affect: Mood normal. Speech: Speech normal. Behavior: Behavior normal. Thought Content: Thought content normal. Angélica (more content not included)... [facility] 08-22-2024 Telephone encounter Note Pharmacy faxed requesting the following refill Refill(s) Requested: Requested Prescriptions Pending Prescriptions Disp Refills amLODIPine (NORVASC) 5 mg tablet [Pharmacy Med Name: amLODIPine Besylate Oral Tablet 5 MG] 30 tablet 0 Sig: TAKE ONE TABLET BY MOUTH DAILY ALLERGIES Allergen Reactions Sulfa (Sulfonamide * Other: See Comments headache (home) [phone] (cell) Last Office Visit Date: 02/20/2024 Last [facility] Visit: Visit date not found Future Appointment: 09/05/2024 The patients preferred pharmacy has been captured for this encounter? yes Request is for script(s) to be escript to pharmacy. Greer Qiu LPN [facility] 08-22-2024 Miscellaneous Notes Pharmacy faxed requesting the following refill Refill(s) Requested: Requested Prescriptions Pending Prescriptions Disp Refills amLODIPine (NORVASC) 5 mg tablet [Pharmacy Med Name: amLODIPine Besylate Oral Tablet 5 MG] 30 tablet 0 Sig: TAKE ONE TABLET BY MOUTH DAILY ALLERGIES Allergen Reactions Sulfa (Sulfonamide * Other: See Comments headache (home) [phone] (cell) Last Office Visit Date: 02/20/2024 Last Distance Health Visit: Visit date not found Future Appointment: 09/05/2024 The patients preferred pharmacy has been captured for this encounter? yes Request is for script(s) to be escript to pharmacy. Greer Qiu LPN documented in this encounter [facility] 07-24-2024 Telephone encounter Note Pharmacy faxed requesting the following refill Refill(s) Requested: Requested Prescriptions Pending Prescriptions Disp Refills amLODIPine (NORVASC) 5 mg tablet [Pharmacy Med Name: amLODIPine Besylate Oral Tablet 5 MG] 30 tablet 0 Sig: take one tablet by mouth daily ALLERGIES Allergen Reactions Sulfa (Sulfonamide * Other: See Comments headache (home) [phone] (cell) Last Office Visit Date: 02/20/2024 Last Distance Health Visit: Visit date not found Future Appointment: 08/18/2024 The patients preferred pharmacy has been captured for this encounter? yes Request is for script(s) to be escript to pharmacy. Greer Qiu LPN [facility] 07-24-2024 Miscellaneous Notes Pharmacy faxed requesting the following refill Refill(s) Requested: Requested Prescriptions Pending Prescriptions Disp Refills amLODIPine (NORVASC) 5 mg tablet [Pharmacy Med Name: amLODIPine Besylate Oral Tablet 5 MG] 30 tablet 0 Sig: take one tablet by mouth daily ALLERGIES Allergen Reactions Sulfa (Sulfonamide * Other: See Comments headache (home) [phone] (cell) Last Office Visit Date: 02/20/2024 Last Distance [facility] Visit: Visit date not found Future Appointment: 08/18/2024 The patients preferred pharmacy has been captured for this encounter? yes Request is for script(s) to be escript to pharmacy. Greer Qiu LPN documented in this encounter [facility] 02-28-2024 Telephone encounter Note sent [facility] 02-28-2024 Miscellaneous Notes sent Pt takes Zolpidem nightly but was only given 30 tablets with a refill. Can this med be ordered as a 90 day supply? Please send to [facility] in [place]obo documented in this encounter [facility] 02-28-2024 Telephone encounter Note Pt takes Zolpidem nightly but was only given 30 tablets with a refill. Can this med be ordered as a 90 day supply? Please send to [facility] in [place] [facility] 02-20-2024 History of Present illness Narrative Images from the original note were not included. [facility] [place] Tapanjarod Mei DO [address] [place] [address] Date of Evaluation: 02/20/2024 Patient Name: Fadi Palomo : 1960 Chief Complaint: Patient presents with: Follow Up: 3 wk after medication change Nursing Intake: There are no exam notes on file for this visit. Subjective Mr. Palomo is a 63 year old male who presents with the following complaint(s): The history is provided by the patient. Hypertension This is a chronic problem. The problem has been gradually improving (has controlled to take amlodipine 10mg.) since onset. Pertinent negatives include no chest pain, headaches, palpitations or shortness of breath. Review of Systems Constitutional: Negative for fatigue and unexpected weight change. HENT: Negative for nosebleeds. Eyes: Negative for redness and visual disturbance. Respiratory: Negative for apnea, cough and shortness of breath. Cardiovascular: Negative for chest pain, palpitations and leg swelling. Genitourinary: Negative for hematuria. Neurological: Negative for dizziness, weakness, light-headedness, numbness and headaches. Hematological: Does not bruise/bleed easily. Psychiatric/Behavioral: The patient is not nervous/anxious. PAST MEDICAL HISTORY Diagnosis Date Hypertension PAST SURGICAL HISTORY Procedure Laterality Date PAST SURGICAL HISTORY OF hernia - left ingunial FAMILY HISTORY Problem Relation Age of Onset Hypertension Mother DVT Mother Ovarian cancer Mother Lung Cancer Mother other (non hodkins) Sister Hypertension Brother other (mva) Brother Social History Tobacco Use Smoking status: Never Smokeless tobacco: Never Substance Use Topics Alcohol use: Yes Comment: just on weekend Drug use: No Current Outpatient Medications Medication Sig Magnesium Oxide 500 mg magnesium tab Take by mouth. MEDICATION, NON-DATABASE Supplements ever strong Blood pressure w dina Olipure BP Pur timothy losartan (COZAAR) 25 mg tablet Take 1 tablet by mouth once daily. zolpidem (AMBIEN) 5 mg tablet Take 1 tablet by mouth at bedtime as needed for up to 90 days. for insomnia. rOPINIRole (REQUIP) 1 mg tablet Take 1 tablet by mouth daily at bedtime. amLODIPine (NORVASC) 10 mg tablet Take 1 tablet by mouth once daily. losartan (COZAAR) 50 mg tablet Take 1 tablet by mouth once daily. amLODIPine (NORVASC) 5 mg tablet Take 1 tablet by mouth once daily. No current facility-administered medications for this visit. I have confirmed and edited as necessary the past medical, family and social histories, HPI, and ROS obtained by others. Objective BP 130/88 Pulse 75 Ht 5' 10 (1.78m) Wt 241 lb (109.3kg) SpO2 96% BMI 34.58 kg/(m^2). Physical Exam Vitals and nursing note reviewed. Constitutional: General: He is not in acute distress. Appearance: Normal appearance. He is well-developed. He is not ill-appearing. HENT: Head: Normocephalic. Right Ear: Tympanic membrane, ear canal and external ear normal. There is no impacted cerumen. Left Ear: Tympanic membrane, ear canal and external ear normal. There is no impacted cerumen. Nose: Nose normal. Mouth/Throat: Mouth: Mucous membranes are moist. Pharynx: Oropharynx is clear. Uvula midline. No oropharyngeal exudate or posterior oropharyngeal erythema. Eyes: General: Lids are normal. Vision grossly intact. Gaze aligned appropriately. No scleral icterus. Right eye: No discharge. Left eye: No discharge. Extraocular Movements: Extraocular movements intact. Conjunctiva/sclera: Conjunctivae normal. Pupils: Pupils are equal, round, and reactive to light. Neck: Thyroid: No thyroid mass, thyromegaly or thyroid tenderness. Vascular: No carotid bruit. Trachea: Trachea and phonation normal. Cardiovascular: Rate and Rhythm: Normal rate and regular rhythm. Pulses: Normal pulses. Heart sounds: Normal heart sounds. Pulmonary: Effort: Pulmonary effort is normal. Breath sounds: Normal breath sounds. Abdominal: General: Abdomen is flat. Bowel sounds are normal. Palpations: Abdomen is soft. Musculoskeletal: General: Normal range of motion. Right shoulder: Normal. Left shoulder: Normal. Cervical back: Normal, full passive range of motion without pain and neck supple. No tenderness. No spinous process tenderness. Thoracic back: Normal. Lumbar back: Normal. Right knee: Normal. Left knee: Normal. Right lower leg: No edema. Left lower leg: No edema. Lymphadenopathy: Cervical: No cervical adenopathy. Skin: General: Skin is warm and dry. Neurological: General: No focal deficit present. Mental Status: He is alert and oriented to person, place, and time. Mental status is at baseline. Sensory: Sensation is intact. Motor: Motor function is intact. Psychiatric: Attention and Perception: Attention and perception normal. Mood and Affect: Mood normal. Speech: Speech normal. Behavior: Behavior normal. Thought Content: Thought content normal. Judgment: Judgment normal. Data Reviewed: Most recent labs ASSESSMENT/PLAN: 1. Hypertension, essential - ICD9: 401.9, ICD10: I10 (primary diagnosis) - Improving control - Increase losartan - Continue Amlodipine. - Recommend home blood pressure monitoring, to bring results to next visit - Encouraged sodium restriction, DASH or Mediterranean diet - Recommend regular aerobic exercise - LOSARTAN 50 MG TABLET 2. Class 1 obesity with body mass index (BMI) of 34.0 to 34.9 in adult, unspecified obesity type, unspecified whether serious comorbidity present - ICD9: 278.00, V85.34, ICD10: E66.9, Z68.34 3. Hypertriglyceridemia - ICD9: 272.1, ICD10: E78.1 - Uncontrolled - Counseled on healthy diet and regular exercise - Advised to take [place] 3 fish oil 4. Bilateral leg edema - ICD9: 782.3, ICD10: R60.0 - Reduce salt and elevate legs Return in about 6 months (around 08/22/2024). Tapan Mei DO Attestation: Scribe Attestation: The patient is seen and examined by Dr. Mei and the following reflects his/her service. Scribed by Ama Watson February 20, 2024 10:22 AMProvider Attestation: I, Tapan Mei DO personally performed the services described in this documentation. All medical record entries made by the scribe were at my direction and in my presence. I have reviewed the chart and discharge instructions (if applicable) and agree that the record reflects my personal performance and is accurate and complete. Electronically Signed: Tapan Mei DO, February 20, 2024 10:52 AM documented in this encounter [facility] 02-18-2024 Telephone encounter Note ----- Message from Tapan Mei DO sent at 02/18/2024 9:45 AM EDT ----- Low saturated fats low trig diet omega 3 fish oil bid [facility] 02-18-2024 Miscellaneous Notes ----- Message from Tapan Mei DO sent at 02/18/2024 9:45 AM EDT ----- Low saturated fats low trig diet omega 3 fish oil bid documented in this encounter [facility] 01-28-2024 History of Present illness Narrative Images from the original note were not included. [facility] Sigifredo [address] [place] [address] Date of Evaluation: 01/28/2024 Patient Name: Fadi Palomo : 1960 Chief Complaint: Patient presents with: Establish Care: Cramping, cologard, labs Nursing Intake: There are no exam notes on file for this visit. Subjective Mr. Palomo is a 63 year old male who presents with the following complaint(s): Patient presents to establish care. Patient complains about not being able to sleep throughout the night. Wakes up several times a night and then has sleepiness throughout the day. Complains of RLS throughout the night describes it as a elective shooting pain through leg Review of Systems Constitutional: Negative for fatigue and unexpected weight change. HENT: Negative for nosebleeds. Eyes: Negative for redness and visual disturbance. Respiratory: Negative for apnea, cough and shortness of breath. Cardiovascular: Positive for leg swelling. Negative for chest pain and palpitations. Genitourinary: Negative for hematuria. Neurological: Negative for dizziness, weakness, light-headedness, numbness and headaches. Hematological: Does not bruise/bleed easily. Psychiatric/Behavioral: Positive for sleep disturbance. The patient is not nervous/anxious. PAST MEDICAL HISTORY Diagnosis Date Hypertension PAST SURGICAL HISTORY Procedure Laterality Date PAST SURGICAL HISTORY OF hernia - left ingunial FAMILY HISTORY Problem Relation Age of Onset Hypertension Mother DVT Mother Ovarian cancer Mother Lung Cancer Mother other (non hodkins) Sister Hypertension Brother other (mva) Brother Social History Tobacco Use Smoking status: Never Smokeless tobacco: Never Substance Use Topics Alcohol use: Yes Comment: just on weekend Drug use: No Current Outpatient Medications Medication Sig amLODIPine (NORVASC) 10 mg tablet Take 1 tablet by mouth once daily. Magnesium Oxide 500 mg magnesium tab Take by mouth. MEDICATION, NON-DATABASE Supplements ever strong Blood pressure w dina Olipure BP Pur zanthin losartan (COZAAR) 25 mg tablet Take 1 tablet by mouth once daily. amLODIPine (NORVASC) 5 mg tablet Take 1 tablet by mouth once daily. zolpidem (AMBIEN) 5 mg tablet Take 1 tablet by mouth at bedtime as needed for up to 90 days. for insomnia. rOPINIRole (REQUIP) 1 mg tablet Take 1 tablet by mouth daily at bedtime. No current facility-administered medications for this visit. I have confirmed and edited as necessary the past medical, family and social histories, HPI, and ROS obtained by others. Objective BP 132/100 Pulse 80 Ht 5' 10 (1.78m) Wt 245 lb (111.1kg) SpO2 96% BMI 35.15 kg/(m^2). Physical Exam Vitals and nursing note reviewed. Constitutional: General: He is not in acute distress. Appearance: Normal appearance. He is well-developed. He is not ill-appearing. HENT: Head: Normocephalic. Right Ear: Tympanic membrane, ear canal and external ear normal. There is no impacted cerumen. Left Ear: Tympanic membrane, ear canal and external ear normal. There is no impacted cerumen. Nose: Nose normal. Mouth/Throat: Mouth: Mucous membranes are moist. Pharynx: Oropharynx is clear. Uvula midline. No oropharyngeal exudate or posterior oropharyngeal erythema. Eyes: General: Lids are normal. Vision grossly intact. Gaze aligned appropriately. No scleral icterus. Right eye: No discharge. Left eye: No discharge. Extraocular Movements: Extraocular movements intact. Conjunctiva/sclera: Conjunctivae normal. Pupils: Pupils are equal, round, and reactive to light. Neck: Thyroid: No thyroid mass, thyromegaly or thyroid tenderness. Vascular: No carotid bruit. Trachea: Trachea and phonation normal. Cardiovascular: Rate and Rhythm: Normal rate and regular rhythm. Pulses: Normal pulses. Heart sounds: Normal heart sounds. Pulmonary: Effort: Pulmonary effort is normal. Breath sounds: Normal breath sounds. Abdominal: General: Abdomen is flat. Bowel sounds are normal. Palpations: Abdomen is soft. Musculoskeletal: General: Normal range of motion. Right shoulder: Normal. Left shoulder: Normal. Cervical back: Normal, full passive range of motion without pain and neck supple. No tenderness. No spinous process tenderness. Thoracic back: Normal. Lumbar back: Normal. Right knee: Normal. Left knee: Normal. Right lower leg: Edema present. Left lower leg: Edema present. Lymphadenopathy: Cervical: No cervical adenopathy. Skin: General: Skin is warm and dry. Neurological: General: No focal deficit present. Mental Status: He is alert and oriented to person, place, and time. Mental status is at baseline. Sensory: Sensation is intact. Motor: Motor function is intact. Psychiatric: Attention and Perception: Attention and perception normal. Mood and Affect: Mood normal. Speech: Speech normal. Behavior: Behavior normal. Thought Content: Thought content normal. Judgment: Judgment normal. Data Reviewed: No new labs ASSESSMENT/PLAN: 1. Hypertension, essential - ICD9: 401.9, ICD10: I10 (primary diagnosis) - Suspect swelling could be cause by amlodipine. - Decrease Amlodipine to 5mg - Start Losartan - Recheck BP in 2 -3 weeks - LOSARTAN 25 MG TABLET - AMLODIPINE 5 MG TABLET 2. Primary insomnia - ICD9: 307.42, ICD10: F51.01 - Start Ambien at HS. - ZOLPIDEM 5 MG TABLET 3. Muscle cramping - ICD9: 729.82, ICD10: R25.2 4. Bilateral leg edema - ICD9: 782.3, ICD10: R60.0 - Suspect due to amlodipine. Decreasing dose. 5. RLS (restless legs syndrome) - ICD9: 333.94, ICD10: G25.81 - Start Requip. 6. Screening for hyperlipidemia - ICD9: V77.91, ICD10: Z13.220 - COMPLETE BLOOD COUNT AND DIFFERENTIAL - COMPREHENSIVE METABOLIC PANEL - LIPID PANEL BASIC 7. Screening for thyroid disorder - ICD9: V77.0, ICD10: Z13.29 - THYROID STIMULATING HORMONE 8. Screening for prostate cancer - ICD9: V76.44, ICD10: Z12.5 - PSA/PROSTATE SPECIFIC ANTIGEN SCREENING 9. Screening for colon cancer - ICD9: V76.51, ICD10: Z12.11 - COLOGUARD 10. Excessive daytime sleepiness - ICD9: 780.54, ICD10: G47.19 - Obtain Sleep Study. - SLEEP STUDY ORDER NON [facility] 11. Class 2 obesity with body mass index (BMI) of 35.0 to 35.9 in adult, unspecified obesity type, unspecified whether serious comorbidity present - ICD9: 278.00, V85.35, ICD10: E66.9, Z68.35 Tapan Mei DO Return in about 3 weeks (around 02/18/2024) for medication follow up, Blood pressure check. Attestation: Scribe Attestation: The patient is seen and examined by Dr. Mei and the following reflects his/her service. Scribed by Ama Watson January 28, 2024 8:55 AMProvider Attestation: I, Tapan Mei DO personally performed the services described in this documentation. All medical record entries made by the scribe were at my direction and in my presence. I have reviewed the chart and discharge instructions (if applicable) and agree that the record reflects my personal performance and is accurate and complete. Electronically Signed: Tapan Mei DO, January 28, 2024 9:17 AM documented in this encounter [facility] Evaluation note Diagnosis Hypertension, essential- Primary Unspecified essential hypertension Primary insomnia Persistent disorder of initiating or maintaining sleep Muscle cramping Cramp of limb Bilateral leg edema Edema Excessive daytime sleepiness RLS (restless legs syndrome) Restless legs syndrome (RLS) Class 2 obesity with body mass index (BMI) of 35.0 to 35.9 in adult, unspecified obesity type, unspecified whether serious comorbidity present Screening for hyperlipidemia Screening for lipoid disorders Screening for thyroid disorder Screening for prostate cancer Special screening for malignant neoplasm of prostate Screening for colon cancer Special screening for malignant neoplasms, colon [facility] Hypertension, essential- Primary Unspecified essential hypertension Hypertriglyceridemia Pure hyperglyceridemia Bilateral leg edema Edema Class 1 obesity with body mass index (BMI) of 34.0 to 34.9 in adult, unspecified obesity type, unspecified whether serious comorbidity present [facility] Primary insomnia Persistent disorder of initiating or maintaining sleep [facility] Diagnosis Hypertension, essential Unspecified essential hypertension [facility] Diagnosis Hypertension, essential Unspecified essential hypertension [facility] [place] [facility] Diagnosis Hypertension, essential Unspecified essential hypertension [facility] Hypertension, essential Unspecified essential hypertension [facility] [place] [facility] Diagnosis Hypertension, essential Unspecified essential hypertension documented in this encounter [facility]* Diagnosis Hypertension, essential- Primary Unspecified essential hypertension Hypertriglyceridemia Pure hyperglyceridemia Sciatica, right side Screening for prostate cancer Special screening for malignant neoplasm of prostate Screening for thyroid disorder documented in this encounter [facility] note* Diagnosis Hypertension, essential Unspecified essential hypertension documented in this encounter [facility] Summary Purpose Family History No Family History Records FoundNo Family History Records Found Advance Directives No Advanced Directives Records FoundNo Advanced Directives Records Found Assessments Diagnosis Exposure to COVID-19 virus- Primary Additional Source Comments (unrecognized sect ion and content) No Status Records FoundNo Status Records Found INFORMATION SOURCE (unrecogn ized section and content) DATE CREATED AUTHOR 04/29/[address] [facility] DATE CREATED AUTHOR AUTHOR'S ORGANIZ ATION 03/27/2025 [facility] Source Comments (unrecognize d section and content) In the event this informatio n is protected by the Federal Confidentiality of Alcohol and Drug Abuse Patient Records regulations: The Federal rules restrict any use of the information to criminally investigate or prosecute any alcohol or drug abuse patient.[facility] the event this information is protected by the Federal Confidentiality of Alcohol and Drug Abuse Patient Records regulations: The Federal rules restrict any use of the information to criminally investigate or prosecute any alcohol or drug abuse patient.[facility] the event this information is protected by the Federal Confidentiality of Alcohol and Drug Abuse Patient Records regulations: The Federal rules restrict any use of the information to criminally investigate or prosecute any alcohol or drug abuse patient.[facility] the event this information is protected by the Federal Confidentiality of Alcohol and Drug Abuse Patient Records regulations: The Federal rules restrict any use of the information to criminally investigate or prosecute any alcohol or drug abuse patient.[facility] the event this information is protected by the Federal Confidentiality of Alcohol and Drug Abuse Patient Records regulations: The Federal rules restrict any use of the information to criminally investigate or prosecute any alcohol or drug abuse patient.[facility] the event this information is protected by the Federal Confidentiality of Alcohol and Drug Abuse Patient Records regulations: The Federal rules restrict any use of the information to criminally investigate or prosecute any alcohol or drug abuse patient.[facility] the event this information is protected by the Federal Confidentiality of Alcohol and Drug Abuse Patient Records regulations: The Federal rules restrict any use of the information to criminally investigate or prosecute any alcohol or drug abuse patient.[facility] the event this information is protected by the Federal Confidentiality of Alcohol and Drug Abuse Patient Records regulations: The Federal rules restrict any use of the information to criminally investigate or prosecute any alcohol or drug abuse patient.[facility] the event this information is protected by the Federal Confidentiality of Alcohol and Drug Abuse Patient Records regulations: The Federal rules restrict any use of the information to criminally investigate or prosecute any alcohol or drug abuse patient.[facility] the event this information is protected by the Federal Confidentiality of Alcohol and Drug Abuse Patient Records regulations: The Federal rules restrict any use of the information to criminally investigate or prosecute any alcohol or drug abuse patient.[facility] the event this information is protected by the Federal Confidentiality of Alcohol and Drug Abuse Patient Records regulations: The Federal rules restrict any use of the information to criminally investigate or prosecute any alcohol or drug abuse patient.[facility] the event this information is protected by the Federal Confidentiality of Alcohol and Drug Abuse Patient Records regulations: The Federal rules restrict any use of the information to criminally investigate or prosecute any alcohol or drug abuse patient.[facility] the event this information is protected by the Federal Confidentiality of Alcohol and Drug Abuse Patient Records regulations: The Federal rules restrict any use of the information to criminally investigate or prosecute any alcohol or drug abuse patient.[facility] the event this information is protected by the Federal Confidentiality of Alcohol and Drug Abuse Patient Records regulations: The Federal rules restrict any use of the information to criminally investigate or prosecute any alcohol or drug abuse patient.[facility] Reason for Visit (unrecogniz ed section and content) Reason Comments Establish Care Cramping, cologard, labs Reason Comments Results Reason Comments Follow Up 3 wk after medicatio n change Reason Comments Medication Problem Reason Comments Refill Request Reason Comments Hypertension 6 Month Exam Insomnia Follow up Care Teams (unrecognized sec tion and content) 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 Start Date End Date Tapan Mei DO [address] [place] [address] PCP - General Family Medicine 01/28/24 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 Start Date End Date Tapan Mei DO [address] [place] [address] PCP - General Family Medicine 01/28/24 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 Start Date End Date Tapan Mei DO [address] [place] [address] PCP - General Family Medicine 01/28/24 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 Start Date End Date Tapan Mei DO [address] [place] [address] PCP - General Family Medicine 01/28/24 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 Start Date End Date Tapan Mei DO [address] [place] [address] PCP - General Family Medicine 01/28/24 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 Start Date End Date Tapan Mei DO [address] [place] [address] PCP - General Family Medicine 01/28/24 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 This clinical summary was aggregated from multiple sources. Caution should be exercised in using it in the provision of clinical care. This summary normalizes information from multiple sources, and as a consequence, information in this document may materially change the coding, format and clinical context of patient data. In addition, data may be omitted in some cases. CLINICAL DECISIONS SHOULD BE BASED ON THE PRIMARY CLINICAL RECORDS. [facility] provides no warranty or guarantee of the accuracy or completeness of information in this document.
[2025-09-25 12:20] LABS: CORTISOL AM 17.40 ug/dL (6.02-18.40)
[2025-09-30 11:08] LABS: Testosterone, % Free 1.93 % (1.50-4.20); Testosterone, Free 9.21 ng/dL (5.00-21.00)
== END | disposition home or self-care (01) ==
LOC: MTLAB 10:11
PROVIDERS: PCP Nurse Practitioner Family; Referring Provider Nurse Practitioner Family; Visit Provider Nurse Practitioner Family
DX: R53.83 Other fatigue (principal)
CPT/HCPCS: 36415; 82533; 84402; 84403